=== PATIENT | female | born 1995 | race Caucasian/White ===

== ENCOUNTER 2018-03-08 10:49 | Emergency (ER) | payer BC ==
[2018-03-08 10:53] VITALS: BP 142/61; PULSE 69; TEMP 98.5; BMI 35.5
[2018-03-08] MEDS ORDERED: ACETAMINOPHEN 500 MG TABLET (FP) PO ONE (11:40)
[2018-03-08] MEDS ORDERED: ACETAMINOPHEN 325 MG TABLET (FP) ONE (11:46)
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
[2018-03-08 12:05] LABS: URINE APPEARANCE CLEAR; URINE BILIRUBIN NEGATIVE (<2.0 mg/dL); URINE BLOOD 3+ (NEGATIVE); URINE COLOR YELLOW; URINE GLUCOSE (UA) NEGATIVE (NEGATIVE); URINE KETONE NEGATIVE (NEGATIVE); URINE LEUK ESTERASE NEGATIVE (NEGATIVE); URINE NITRITE NEGATIVE (NEGATIVE); URINE PROTEIN NEGATIVE (NEGATIVE); URINE UROBILINOGEN NEGATIVE mg/dL (0.2-1.0)
[2018-03-08 12:07] LABS: HCG,QUALITATIVE URINE NEGATIVE
[2018-03-08 12:13] LABS: EPI CELLS RARE /HPF (FEW); URINE MUCUS RARE
== END 2018-03-08 14:55 | disposition home or self-care (01) ==
LOC: JER 10:49
DX: N94.6 Dysmenorrhea, unspecified (principal)
CPT/HCPCS: 76830-TC; 81003; 81015; 84703; 87086; 99282-25

== ENCOUNTER 2019-06-19 18:35 | Emergency (ER) | payer BC ==
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
[2019-06-19 18:44] VITALS: BP 116/76; PULSE 56; TEMP 98.6; BMI 36.6
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
== END 2019-06-19 19:00 | disposition home or self-care (01) ==
LOC: JERFT 18:35
DX: M54.2 Cervicalgia (principal); V43.52XA Car driver injured in collision with other type car in traffic accident, initial encounter; Y93.89 Activity, other specified; Y92.410 Unspecified street and highway as the place of occurrence of the external cause
CPT/HCPCS: 99281-25